=== PATIENT | male | born 1970 | race African-American/Black ===

== ENCOUNTER 2018-09-20 23:02 | Inpatient (IN) | payer OTHER ==
[~2018-09-20] VITALS: Ht 193 cm; Wt 83.9 kg
[2018-09-20] MEDS ORDERED: HUMALOG100 UNIT/1 (23:40)
[2018-09-20] MEDS ORDERED: LANTUS SOL100 UNIT/1 (23:40)
== END 2018-09-23 13:06 | disposition home or self-care (01) | DRG 639 ==
LOC: ER 23:02 → ICU 09-21 14:23 → MEDJ 09-22 18:30
PROVIDERS: ADMIT Specialist
DX: E10.10 Type 1 diabetes mellitus with ketoacidosis without coma (principal); E86.0 Dehydration; Z79.4 Long term (current) use of insulin; Z91.14 Patient's other noncompliance with medication regimen; Z72.0 Tobacco use

== ENCOUNTER 2019-09-10 14:27 | Inpatient (IN) | payer OTHER ==
[~2019-09-10] VITALS: Ht 193 cm; Wt 89.8 kg
[~2019-09-10 14:27] MED LIST: HUMALOG100 UNIT/1; LANTUS SOL100 UNIT/1
== END 2019-09-12 16:20 | disposition home or self-care (01) | DRG 638 ==
LOC: ER 14:27 → ICU 17:30
PROVIDERS: ADMIT Internal Medicine
PROC: 4A033R1 Measurement of Arterial Saturation, Peripheral, Percutaneous Approach (ICD-10-PCS; principal; 2019-09-10)
DX: E10.10 Type 1 diabetes mellitus with ketoacidosis without coma (principal); N17.8 Other acute kidney failure; E86.0 Dehydration; E87.5 Hyperkalemia